=== PATIENT | male | born 2000 | race Caucasian/White ===

== ENCOUNTER 2021-05-27 14:29 | Emergency (ER) | payer OTHER ==
[~2021-05-27] VITALS: Ht 175.3 cm; Wt 75.1 kg
[2021-05-27] MEDS ORDERED: ACETAMINOPHEN 500 MG TAB PO ONE (21:30)
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
[2021-05-27 22:21] VITALS: BP 136/68
== END 2021-05-27 22:25 | disposition home or self-care (01) ==
LOC: M ED 14:29
DX: S09.90XA Unspecified injury of head, initial encounter (principal); M54.2 Cervicalgia; R07.82 Intercostal pain; V43.62XA Car passenger injured in collision with other type car in traffic accident, initial encounter; Y92.9 Unspecified place or not applicable; Y93.9 Activity, unspecified; Y99.9 Unspecified external cause status